=== PATIENT | female | born 1995 | race African-American/Black ===

== ENCOUNTER 2017-07-20 22:13 | Emergency (ER) | payer MEDICAID ==
[~2017-07-20] VITALS: Ht 160 cm; Wt 86.2 kg
[2017-07-20 22:55] VITALS: BP 123/68
[2017-07-20] MEDS ORDERED: Ketorolac 60mg Inj IM ONE (23:15)
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
[2017-07-21] MEDS ORDERED: LIDOCAINE700 M1 TP (00:33)
[2017-07-21] MEDS ORDERED: IBUPROFEN600 MG ORAL (00:33)
[2017-07-21 00:54] VITALS: BP 128/70
--- NOTE | 2017-07-21 11:00 | Diagnostic Imaging Report ---
Indication: Chest pain Comparison: None 2 views of the chest obtained. Findings: Cardiomediastinal silhouette and pulmonary vascularity are within normal limits for age. The diaphragmatic contour is smooth and costophrenic angles are sharp. No pleural effusions are identified. The bones are unremarkable. Impression: No acute disease
--- NOTE | 2017-07-21 11:00 | Diagnostic Imaging Report ---
Indication: Neck Pain Findings: 5 views of the cervical spine were obtained. There is no acute fracture identified. Alignment is normal. The open-mouth odontoid view shows an intact dens and good alignment of the lateral masses with respect to the body of C2. Oblique views show widely patent neural foramina. There is no soft tissue swelling. Impression: Negative cervical spine examination.
== END 2017-07-21 00:54 | disposition home or self-care (01) ==
LOC: EMR 22:44
DX: S20.219A Contusion of unspecified front wall of thorax, initial encounter (principal); S00.83XA Contusion of other part of head, initial encounter; S16.1XXA Strain of muscle, fascia and tendon at neck level, initial encounter; V43.62XA Car passenger injured in collision with other type car in traffic accident, initial encounter; Y92.410 Unspecified street and highway as the place of occurrence of the external cause
CPT/HCPCS: 71046; 72050; 81025; 96372; 99284

== ENCOUNTER 2018-07-31 13:05 | Emergency (ER) | payer MEDICAID ==
[~2018-07-31] VITALS: Ht 160 cm; Wt 90.7 kg
[~2018-07-31 13:05] MED LIST: IBUPROFEN600 MG ORAL; LIDOCAINE700 M1 TP
[2018-07-31] MEDS ORDERED: NKM (13:21)
--- NOTE | 2018-07-31 13:52 | Emergency Room Report ---
History of Present Illness General Chief Complaint: Chest Pain Source: Patient Present Illness HPI 23-year-old female with no significant past medical history here complaining of 2 weeks of cough and phlegm production accompanied with chest pressure and upper back pain every time she coughs. She has been taking cough medication with minimal relief patient complains that the symptoms started with sore throat about 2 weeks ago denying fever and chills, however complains of increased rhinorrhea and congestion. Patient denies smoking, sick contact, recent travel. Denies chest pain, shortness of breath, nausea vomiting and abdominal pain. Allergies: Coded Allergies: No Known Allergies (Unverified , 07/20/17) Patient History Past Medical History: see triage record Past Surgical History: unable to obtain Pertinent Family History: none Last Menstrual Period: JULY 2018 Now: No Reviewed Nursing Documentation: PMH: Agreed; PSxH: Agreed Nursing Documentation-PMH Past Medical History: No Stated History Review of Systems All Other Systems: negative except mentioned in HPI Physical Exam Vital Signs Date Time Temp Pulse Resp B/P (MAP) Pulse Ox O2 Delivery O2 Flow Rate FiO2 07/31/18 13:18 98.1 73 16 115/58 (77) 97 Room Air Sp02 EP Interpretation: reviewed, normal General Appearance: normal inspection, well appearing, no apparent distress Head: normocephalic, atraumatic Eyes: bilateral eye normal inspection, bilateral eye PERRL ENT: normal voice, TMs + canals normal, uvula midline, pharyngeal erythema Neck: normal inspection, full range of motion, supple Respiratory: normal inspection, chest non-tender, lungs clear, normal breath sounds, wheezing - diffuse Cardiovascular #1: normal inspection, normal peripheral pulses, regular rate, rhythm, no edema, no murmur Gastrointestinal: normal inspection, normal bowel sounds, non tender, soft Genitourinary: no CVA tenderness Musculoskeletal: normal inspection, back normal Neurologic: normal inspection, alert, oriented x3 Psychiatric: normal inspection, judgement/insight normal Skin: normal inspection, normal color, no rash, warm/dry Lymphatic: normal inspection, no adenopathy Medical Decision Making PA Attestation Diagnosis and treatment plans were reviewed and discussed with my supervising physician Dr. Henderson Diagnostic Impression: Primary Impression: Sinusitis ER Course 23-year-old female with no significant past medical history here complaining of 2 weeks of cough and phlegm production accompanied with chest pressure and upper back pain every time she coughs. She has been taking cough medication with minimal relief patient complains that the symptoms started with sore throat about 2 weeks ago denying fever and chills, however complains of increased rhinorrhea and congestion. Patient denies smoking, sick contact, recent travel. Denies chest pain, shortness of breath, nausea vomiting and abdominal pain. Ddx considered but are not limited to pharyngitis, sinusitis, bronchitis, Vital signs: are WNL, pt. is afebrile H&PE are most consistent with sinusitis ORDERS: Amoxicillin, albuterol, Tessalon Perles l ED INTERVENTIONS: None required at this time. DISCHARGE: At this time pt. is stable for d/c to home. Will provide printed patient care instructions, and any necessary prescriptions. Care plan and follow up instructions have been discussed with the patient prior to discharge. Last Vital Signs Date Time Temp Pulse Resp B/P (MAP) Pulse Ox O2 Delivery O2 Flow Rate FiO2 07/31/18 13:18 98.1 73 16 115/58 (77) 97 Room Air Disposition: HOME, SELF-CARE Condition: Stable Scripts Albuterol Sulfate* (PROAIR HFA*) 8.5 Gm Hfa.aer.ad 2 PUFFS INH Q6H, #8.5 GM 0 Refills Prov: Nolan Hernandez 07/31/18 Benzonatate* (TESSALON PERLE*) 100 Mg Capsule 100 MG ORAL THREE TIMES A DAY, #20 PERLE Prov: Nolan Hernandez 07/31/18 Azithromycin* (ZITHROMAX*) 250 Mg Tablet 250 MG ORAL DAILY, #6 TAB 0 Refills Take two tables once daily for 1 day, then one tablet once daily for 4 days. Prov: Nolan Hernandez 07/31/18 Patient Instructions: Sinusitis, Adult, [id number] Nolan Hernandez Jul 31, 2018 13:52
[2018-07-31] MEDS ORDERED: PROAIR HFA8.5 GM INH (13:53)
[2018-07-31] MEDS ORDERED: ZITHROMAX250 MG ORAL (13:53)
[2018-07-31] MEDS ORDERED: TESSALON PERLE100 MG ORAL (13:53)
--- NOTE | 2018-07-31 15:01 | NUR ---
ED Nurse Note: pt came in for upper uri symptoms foriegn priest done pt given aci and script verbalized understanding ambulated out with stong and steady gait.
[2018-07-31 15:38] VITALS: BP 122/78
== END 2018-07-31 14:10 | disposition home or self-care (01) ==
LOC: EMR 13:52
DX: J32.9 Chronic sinusitis, unspecified (principal)
CPT/HCPCS: 99282

== ENCOUNTER 2018-08-16 19:19 | Emergency (ER) | payer MEDICAID ==
[~2018-08-16] VITALS: Ht 160 cm; Wt 90.7 kg
[~2018-08-16 19:19] MED LIST changes: +NKM; +PROAIR HFA8.5 GM INH; +TESSALON PERLE100 MG ORAL; +ZITHROMAX250 MG ORAL
--- NOTE | 2018-08-16 19:42 | NUR ---
ED Nurse Note: PATIENT AMBULATED TO ED C/O LEFT HAND SPRAIN X 2 DAY. PATIENT REPORTS PAIN UPON MOVEMENT. Pt is AO x 4times, VSS, on room air no distress. KIRKD seen Pt at bedside.
[2018-08-16 19:43] VITALS: BP 120/70
--- NOTE | 2018-08-16 19:55 | NUR ---
ED Nurse Note: X ray at bedside.
[2018-08-16] MEDS ORDERED: HYDROcodone/Acetamin 5/325 tab ORAL ONE (20:00)
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
[2018-08-16] MEDS ORDERED: BACITRACIN-P28.35 GM TP (20:38)
[2018-08-16] MEDS ORDERED: ACETAMINOPHEN-1 EAC1 ORAL (20:38)
[2018-08-16] MEDS ORDERED: CEPHALEXIN500 MG ORAL (20:38)
[2018-08-16 21:02] VITALS: BP 122/68
--- NOTE | 2018-08-16 21:02 | NUR ---
ED Nurse Note: Clean the finger and put on splint.
--- NOTE | 2018-08-16 21:04 | NUR ---
ER DISCHARGE NOTE: Patient is cleared to be discharged per ERMD, pt is aox4, on room air, with stable vital signs. pt was given dc and prescription instructions, pt was able to verbalize understanding, pt id band removed without complications. pt is able to ambulate with steady gait with friend. pt took all belongings.
--- NOTE | 2018-08-17 08:56 | Diagnostic Imaging Report ---
Indication: Left hand pain Technique: 3 views left hand Comparison: none Findings: No acute fractures. No dislocations. The joint spaces are preserved Impression: Negative
== END 2018-08-17 00:13 | disposition home or self-care (01) ==
LOC: EMR 20:05
DX: S60.222A Contusion of left hand, initial encounter (principal); S63.92XA Sprain of unspecified part of left wrist and hand, initial encounter; S61.309A Unspecified open wound of unspecified finger with damage to nail, initial encounter; Y04.0XXA Assault by unarmed brawl or fight, initial encounter; Y93.9 Activity, unspecified; Y92.9 Unspecified place or not applicable
CPT/HCPCS: 29130; 99283

== ENCOUNTER 2019-02-02 22:21 | Emergency (ER) | payer MEDICAID ==
[~2019-02-02] VITALS: Ht 160 cm; Wt 90.7 kg
[~2019-02-02 22:21] MED LIST changes: +ACETAMINOPHEN-1 EAC1 ORAL; +BACITRACIN-P28.35 GM TP; +CEPHALEXIN500 MG ORAL
--- NOTE | 2019-02-02 22:30 | NUR ---
ED Nurse Note: pt walked in c/o abscess on lower abd area, pt reports she's been having it for past four days but the pain worsen. noted mildly swollen abscess with redness and hot to touch w/ tenderness. will cont monitor. no drainiage at this time, wound closed.
--- NOTE | 2019-02-02 22:37 | Emergency Room Report ---
History of Present Illness General Chief Complaint: Skin Rash/Abscess Source: Patient Present Illness HPI Is a 23-year-old female with no past medical history. She presents with chief complaint of a rash and swelling to her abdominal area. Onset for last 4 days. Getting worse. More swelling. She has similar abscess in the suprapubic area that drained by itself. This wound is not draining. Pain is 10 out of 10. Worse with palpation. Worse with movement. No drainage. No fever chills. No other complaint. Allergies: Coded Allergies: No Known Allergies (Unverified , 07/20/17) Patient History Past Medical History: see triage record, old chart reviewed Past Surgical History: none Pertinent Family History: none Social History: Denies: smoking Last Menstrual Period: 01/17/19 Now: No Immunizations: other Reviewed Nursing Documentation: PMH: Agreed; PSxH: Agreed Nursing Documentation-PM Past Medical History: No Stated History Review of Systems Eye: Denies: eye pain, blurred vision ENT: Denies: ear pain, nose congestion, throat swelling Respiratory: Denies: cough, shortness of breath Cardiovascular: Denies: chest pain, palpitations Gastrointestinal: Denies: abdominal pain, diarrhea, nausea, vomiting Musculoskeletal: Denies: back pain, joint pain Skin: Denies: rash Neurological: Denies: headache, numbness Endocrine: Denies: increased thirst, increased urine Hematologic/Lymphatic: Denies: easy bruising All Other Systems: negative except mentioned in HPI Physical Exam Vital Signs Date Time Temp Pulse Resp B/P (MAP) Pulse Ox O2 Delivery O2 Flow Rate FiO2 02/02/19 22:25 99.0 91 22 110/70 (83) 97 Room Air Vitals normal Sp02 EP Interpretation: reviewed, normal General Appearance: well appearing, no apparent distress, alert, obese Head: normocephalic, atraumatic Eyes: bilateral eye PERRL, bilateral eye EOMI ENT: hearing grossly normal, normal pharynx Neck: full range of motion, supple, no meningismus Respiratory: chest non-tender, lungs clear, normal breath sounds Cardiovascular #1: regular rate, rhythm, no murmur Gastrointestinal: normal bowel sounds, non tender, no mass, no organomegaly, no bruit, non-distended, other - Abdominal wall: There is an indurated and fluctuant area measuring about 3 cm to the left lower pannus. Some warmth and surrounding redness. Very tender to palpation. Musculoskeletal: back normal, normal range of motion, gait/station normal Psychiatric: mood/affect normal Procedures Incision and Drainage Incision and Drainage : Consent: Verbal Site: Left abdominal wall Blade Size: 11 I & D Procedure: betadine prep Wound Location: abdomen Anesthesia: 1% Lidocaine Volume Anesthetic (ccs): 5 Patient Tolerated: Well Complications: None Progress Local anesthetic with 1% lidocaine without epinephrine. I made a 2 cm incision. Copious amount of pus expressed. Loculated area broken up. Wound dressed. Patient tolerated seizure without any problem. Medical Decision Making Diagnostic Impression: Primary Impression: Abscess of abdominal wall ER Course Patient with abdominal wall abscess. No necrotizing fasciitis. No deep infection. Last Vital Signs Date Time Temp Pulse Resp B/P (MAP) Pulse Ox O2 Delivery O2 Flow Rate FiO2 02/02/19 22:25 99.0 91 22 110/70 (83) 97 Room Air Status: improved Disposition: HOME, SELF-CARE Condition: Stable Scripts Hydrocodone/Acetaminophen 5-325* (HYDROCODONE/ACETAMINOPHEN 5-325*) 1 Each Tablet 1 TAB ORAL Q6H PRN for For Pain, #10 TAB 0 Refills Prov: Guy Rodriguez MD 02/02/19 Trimethoprim/Sulfamethoxazole 160/800* (BACTRIM DS TABLET*) 1 Each Tablet 1 TAB ORAL Q12H, #14 TAB 0 Refills Prov: Guy Rodriguez MD 02/02/19 Patient Instructions: Abscess Guy Rodriguez MD Feb 02, 2019 22:37
[2019-02-02] MEDS ORDERED: Bactrim-DS 1 tab ORAL ONE (22:45)
[2019-02-02] MEDS ORDERED: HYDROmorphone 1mg/ml Carpuject IM ONE (22:45)
[2019-02-02 22:48] VITALS: BP 110/70
[2019-02-02] MEDS ORDERED: BACTRIM DS TAB1 EAC1 ORAL (23:19)
[2019-02-02] MEDS ORDERED: HYDROCODON-ACE1 EA15 ORAL (23:19)
--- NOTE | 2019-02-02 23:21 | NUR ---
ED Nurse Note: pt is cleared to be d/c per ERMD, pt was informed that doctor will be prescribed medications but left w/o discharge paperwork. ERMD notified. charge nurse notified. attempted calling pt to inform the discharge paperwork.
--- NOTE | 2019-02-02 23:22 | NUR ---
Attempts to call patients home to come back and garbage pick up worker prescriptions-no answers, continous ringing.Not able to leave message.
--- NOTE | 2019-02-02 23:25 | NUR ---
ED Nurse Note: Found pt standing outside of the ER waiting for the ride, pt discharge and aftercare instruction w/ prescription provided, pt education done via discussion and handout, pt advised to follow up with pcp or return to ed if changes in condition, vss, ambulatory w/ steady gait, left w/ all belongings accompanied by sister.
[2019-02-02 23:26] VITALS: BP 110/70
== END 2019-02-02 23:26 | disposition home or self-care (01) ==
LOC: EMR 22:40
DX: L02.211 Cutaneous abscess of abdominal wall (principal)
CPT/HCPCS: 10060; 96372; J1170; Z7502; 99283